=== PATIENT | male | born 1965 | race Caucasian/White ===

== ENCOUNTER 2016-11-25 19:26 | Emergency (ER) | payer OTHER ==
[~2016-11-25] VITALS: Ht 180.3 cm; Wt 113.4 kg
[2016-11-25 19:34] VITALS: BP 132/88
--- NOTE | 2016-11-25 21:18 | ED CARDIAC/CP/PALPITATIONS ---
History of Present Illness General Chief Complaint: Chest Pain Stated Complaint: CHEST PAIN ALL DAY Source: patient, old records Exam Limitations: no limitations Vital Signs & Intake/Output Vital Signs & Intake/Output Vital Signs Date Time Temp Pulse Resp B/P B/P Pulse O2 O2 Flow FiO2 Mean Ox Delivery Rate 11/25 1933 98.4 92 18 132/88 97 Room Air Allergies Coded Allergies: No Known Allergies (11/25/16) Reconcile Medications Fenofibrate 160 MG TABLET 1 TAB PO DAILY HLD Fenofibrate 160 MG TABLET 1 TAB PO DAILY hld Triage Note: PT TO TRIAGE WITH C/O CONSTANT CHEST PAIN 7/10 LEFT SIDED SINCE THIS MORNING. NO OTHER COMPLAINTS. EKG DONE IN [facility]. S. Triage Nurses Notes Reviewed? yes Onset: Gradual Duration: hour(s): (13), intermittent, waxing and waning Timing: single episode today Quality/Severity: mild, aching, dull Location: substernal (left sided) Radiation: no radiation Activities at Onset: none Prior Chest Pain/Card Workup: no prior chest pain Nitro Today/Relief: no nitro taken today Aspirin Today: 81 mg x 1, provided at home Associated Symptoms: denies HPI: 51-year-old male with history of hypertension high cholesterol presents to ER complaining of a partially 13 hour history of dull aching left-sided nonradiating chest pain 7 out of 10. He denies any associated shortness of breath hemoptysis pain with inspiration. No Dohle pain nausea vomiting diarrhea no back jaw or arm pain. Symptoms came on while at rest he took an aspirin without improvement. Pain is been waxing and waning in intensity since no recent immobility. He does not smoke he denies alcohol tobacco or drug use. No history of coronary artery disease no family history of coronary artery disease. Symptoms are better with lying back they're not worse with exertion no diaphoresis no dizziness lightheadedness He does report he did not sleep well last night, has been under increased stress x 1 week per family (MARIPOSA KATHLEEN) Past History Travel History Traveled to [place] past 21 day No Medical History Any Pertinent Medical History? see below for history Cardiovascular: hypertension, hyperlipidemia Gastrointestinal: GERD Surgical History Surgical History: none Psychosocial History What is your primary language Turkish Tobacco Use: Never used Family History Hx Contributory? No (MARIPOSA KATHLEEN) Review of Systems Review of Systems Constitutional: Reports: no symptoms. All Other Systems: Reviewed and Negative Comments Review of systems: See HPI, All other systems negative. Constitutional, no chills no fever, no malaise HEENT: no sore throat no congestion, no ear pain Cardiovascular: chest pain , no palpitation , no orthopnea Skin: no rashes, no change in skin Respiratory: No dyspnea no cough no sputum no hemoptysis GI: No nausea no vomiting, no diarrhea, no bloating/constipation : No dysuria Muscle skeletal: No joint pain, no joint swelling, no back pain, no neck pain, Neurologic: No numbness no headache Psych: stress no depression,. Heme/endocrine: No bruising no bleeding Immunology: No lymphadenopathy (MARIPOSA KATHLEEN) Physical Exam Physical Exam General Appearance: well developed/nourished, alert, awake Cardiovascular: regular rate/rhythm Comments: Well-developed well-nourished person in no acute distress HEENT: Normal EENT exam; PERRL, EOMI, HEAD is atraumatic. moist mucous membranes. Neck: Supple,normal range of motion Back: Nontender, no CVA tenderness. Full range of motion Cardiovascular: Regular rate and rhythms no murmurs rubs normal JVP Respiratory: Chest nontender.There were no bony deformities, no asymmetry. No respiratory distress. Patient speaking in full complete sentences. Breath sounds clear to auscultation bilaterally: NO W/R/R Abdomen: Soft, nontender nondistended, no appreciable organomegaly. Extremity: No edema, full range of motion of extremities, Neuro: Alert oriented x3, motor sensory normal, There were no obvious focal neurologic abnormalities. Skin: No appreciable rash on exposed skin, skin is warm and dry. Psych: Mood and affect is normal, memory and judgment is normal. Core Measures ACS in differential dx? Yes Severe Sepsis Present: No Septic Shock Present: No (MARIPOSA KATHLEEN) Progress Differential Diagnosis: AMI, aortic dissection, atrial fibrillation, musculoskeletal pain, myocarditis, pericarditis, pulmonary embolism, PVCs/PACs, unstable angina Diagnostic Imaging: Viewed by Me: Radiology Read. Discussed w/RAD: Radiology Read. Radiology Impression: PATIENT: MARIPOSA MONTES PRESENT AGE: 51 PATIENT ACCOUNT NO: [id number] : 64 LOCATION: [facility] ORDERING PHYSICIAN: MARIPOSA LE SERVICE DATE: 11/25/16 EXAM TYPE: RAD - XRY- PORTABLE CHEST XRAY EXAMINATION: XR PORTABLE CHEST CLINICAL INFORMATION: 51-year -old man with chest pain. COMPARISON: None TECHNIQUE: Portable frontal view of the chest was obtained. FINDINGS: The lungs are relatively well expanded and clear, without evidence of focal consolidation or overt pulmonary edema. Heart size is within the range of normal. There are no pleural effusions. IMPRESSION: No radiographic evidence of an acute cardiopulmonary process. DICTATED BY: MOUSTAPHA KRAFT MD DATE/TIME DICTATED:11/25/162201 AFTER SCHOOL PROGRAM ASSISTANT:ISMA DATE/TIME TRANSCRIBED:11/25/162201 CONFIDENTIAL, DO NOT COPY WITHOUT APPROPRIATE AUTHORIZATION. <Electronically signed in Other Vendor System> SIGNED BY: MOUSTAPHA KRAFT MD 11/25/162205 Initial ED EKG: normal intervals, normal p-waves, normal QRS complex, normal sinus rhythm (80) Rhythm Strip: normal sinus rhythm (MAR LE,MARIPOSA) Plan of Care: Orders Procedure Date/time Status TROPONIN LEVEL 11/25 1930 Complete COMPREHENSIVE METABOLIC PANEL 11/25 1930 Complete CBC WITHOUT DIFFERENTIAL 11/25 1930 Complete EKG 11/25 1925 Active Laboratory Tests 11/25/162119: Anion Gap 13, Estimated GFR > 60, BUN/Creatinine Ratio 14.0, Glucose 106 H, Calcium 9.7, Total Bilirubin 2.0 H, AST 26, ALT 83 H, Alkaline Phosphatase 74, Troponin I < 0.01, Total Protein 7.7, Albumin 4.6, Globulin 3.1, Albumin/ Globulin Ratio 1.5, CBC w Diff NO MAN DIFF REQ, RBC 5.73, MCV 87.2, MCH 28.6, RDW 14.7 H, MPV 9.3, Gran % 79.6 H, Lymphocytes % 9.9 L, Monocytes % 10.1 H, Eosinophils % 0.3, Basophils % 0.1, Absolute Granulocytes 11.8 H, Absolute Lymphocytes 1.5, Absolute Monocytes 1.5 H, Absolute Eosinophils 0, Absolute Basophils 0, PUBS MCHC 32.8 L Case discussed with Dr. bailey patient took asa prior to arrival he denies any symptoms at this time normal sinus on monitor Discussed with patient at length all of his lab results symptoms were present for greater than 12 hours there is no pain with inspiration no cough no hemoptysis. Do not believe the patient requires repeat troponin given duration of symptoms, better with laying back and discussed in all his lab results including his elevated white blood cell count of follow-up with primary care as well as advertising agency manager. I discussed with the patient at length all of their results. I had an extensive conversation regarding need for close follow up with their primary care physician this week as well as return precautions. I answered all of their questions, they feel comfortable with the plan and follow-up care. He is requesting refill of his fenofibrate which was provided to him (MARIPOSA KATHLEEN) Departure Departure Time of Disposition: 2229 Disposition: HOME OR SELF CARE Condition: Stable Clinical Impression Primary Impression: Atypical chest pain Referrals: IVAN CHA,JORDIN Woo (PCP/Family) WANDA CHA PhD,TONO Concepcion Additional Instructions: Follow-up with your primary care physician as well as advertising agency manager Dr. MUÑOZ on Sunday Tylenol Motrin for pain return to ER anytime sooner with any concerns. Your prescription for your cholesterol medication was sent to [facility] Departure Forms: Customer Survey General Discharge Information Prescriptions: Current Visit Scripts Fenofibrate 1 TAB PO DAILY #30 TAB Fenofibrate 1 TAB PO DAILY #30 TAB (MARIPOSA KATHLEEN) PA/FREIGHT CAR INSPECTOR Co-Sign Statement Statement: ED Attending supervision documentation- [] I saw and evaluated the patient. I have also reviewed all the pertinent lab results and diagnostic results. I agree with the findings and the plan of care as documented in the PA's/FREIGHT CAR INSPECTOR's documentation. [X] I have reviewed the ED Record and agree with the PA's/FREIGHT CAR INSPECTOR's documentation. [] Additions or exceptions (if any) to the PAs/FREIGHT CAR INSPECTOR's note and plan are summarized below: [] (LUIS CHA,TOMI Skinner) Critical Care Note Critical Care Note Critical Care Time: non-applicable (MARIPOSA KATHLEEN)
[2016-11-25 21:25] LABS: ABSOLUTE BASOPHIL COUNT 0 /CUMM (0.0-0.2); ABSOLUTE EOSINOPHIL COUNT 0 /CUMM (0.0-0.7); ABSOLUTE GRANULOCYTE CT 11.8 /CUMM (1.4-6.5); ABSOLUTE LYMPH COUNT 1.5 /CUMM (1.2-3.4); ABSOLUTE MONOCYTE COUNT 1.5 /CUMM (0.10-0.60); BASOPHIL % 0.1 % (0.0-2.0); EOSINOPHIL % 0.3 % (0-5); GRANULOCYTE % 79.6 % (42.2-75.2); MEAN CORPUSCULAR HGB 28.6 PG (27.0-31.0); MEAN CORPUSCULAR HGB CONC 32.8 G/DL (33.0-37.0); MEAN CORPUSCULAR VOLUME 87.2 FL (80.0-94.0); MEAN PLATELET VOLUME 9.3 FL (7.4-10.4); PLATELET COUNT 206 /CUMM (130-400); RBC DISTRIBUTION WIDTH 14.7 % (11.5-14.5); RED BLOOD CELL CT 5.73 /CUMM (4.70-6.10); WHITE BLOOD CELL COUNT 14.8 /CUMM (4.8-10.8)
--- NOTE | 2016-11-25 22:06 | RADIOLOGY REPORT ---
EXAMINATION: XR PORTABLE CHEST CLINICAL INFORMATION: 51-year-old man with chest pain. COMPARISON: None TECHNIQUE: Portable frontal view of the chest was obtained. FINDINGS: The lungs are relatively well expanded and clear, without evidence of focal consolidation or overt pulmonary edema. Heart size is within the range of normal. There are no pleural effusions. IMPRESSION: No radiographic evidence of an acute cardiopulmonary process.
[2016-11-25] MEDS ORDERED: FENOFIBRATE160 M1 PO ×2 (22:31→22:36)
== END 2016-11-25 22:37 ==
LOC: ERH 19:26
PROVIDERS: Physician Assistant Medical
DX: R07.89 Other chest pain (principal)
CPT/HCPCS: 93005; 93010